=== PATIENT | male | born 1995 | race Caucasian/White ===

== ENCOUNTER 2017-01-16 09:49 | Emergency (ER) | payer SELFPAY ==
[~2017-01-16] VITALS: Ht 170.2 cm; Wt 76.0 kg
[2017-01-16] MEDS ORDERED: IBUPROFEN 600MG TABLET PO STA (10:30)
[2017-01-16 10:43] VITALS: BP 128/85
== END 2017-01-16 14:05 | disposition home or self-care (01) ==
LOC: ER 10:39
DX: R51 Headache (principal); M54.2 Cervicalgia; V89.2XXA Person injured in unspecified motor-vehicle accident, traffic, initial encounter; Y93.89 Activity, other specified; Y92.89 Other specified places as the place of occurrence of the external cause; Y99.8 Other external cause status
CPT/HCPCS: 70450; 72125; 99284